=== PATIENT | male | born 1980 | race Caucasian/White ===

== ENCOUNTER 2018-05-29 03:04 | Emergency (ER) | payer SELFPAY, OTHER ==
[2018-05-29] MEDS: MIDAZOLAM INJ 2 MG/2 ML VIAL (J2250) IV (03:25)
== END 2018-05-29 04:18 | disposition home or self-care (01) ==
LOC: M ED 03:04
DX: S43.085A Other dislocation of left shoulder joint, initial encounter (principal); W51.XXXA Accidental striking against or bumped into by another person, initial encounter; Y92.410 Unspecified street and highway as the place of occurrence of the external cause; Y93.9 Activity, unspecified; Y99.9 Unspecified external cause status; Z72.0 Tobacco use
CPT/HCPCS: J2250